=== PATIENT | male | born 1990 | race Caucasian/White ===

== ENCOUNTER 2024-03-27 10:42 | Emergency (ER) | payer SELFPAY ==
[2024-03-27 11:18] VITALS: BP 129/86
--- NOTE | 2024-03-27 12:45 | EDRN ---
Justice CARDENAS currently at the pts bedside
[2024-03-27 12:46] VITALS: BP 115/71; BMI 26.8
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
--- NOTE | 2024-03-27 13:00 | EDRN ---
the pt is resting in stretcher in the lowest position, side rails up x1, HOB elevated, no s/s of distress, the pt denies needing anything at this time, the pts is currently at the pts bedside, will continue to monitor the pt closely
--- NOTE | 2024-03-27 14:00 | EDRN ---
the pt is resting in stretcher in the lowest position, side rails up x1, HOB elevated, no s/s of distress, the pt notified this RN that he is getting, 'irritated because i have been here for a long time and no one has given me pain medication and i
want to know if i can leave', this RN notified Justice CARDENAS
--- NOTE | 2024-03-27 14:40 | EDRN ---
Justice CARDENAS currently at the pts bedside speaking with the pt and the pts and providing discharge instructions for the pt and the pt
== END 2024-03-27 14:49 | disposition home or self-care (01) ==
LOC: EMR 10:42
PROVIDERS: EMERGENCY PHYSICIAN Emergency Medicine
DX: S63.501A Unspecified sprain of right wrist, initial encounter (principal); M25.532 Pain in left wrist; V43.52XA Car driver injured in collision with other type car in traffic accident, initial encounter
CPT/HCPCS: 99284; 73110